=== PATIENT | male | born 1945 | race Caucasian/White ===

== ENCOUNTER → 2017-08-29 | Outpatient (CLI) | payer OTHER ==
[~2017-08-29] MED LIST: ASPIR 8181 MG PO; BENAZEPRIL HCL20 MG PO; FLOMAX0.4 MG PO; KETOCONAZOLE15 GM TOP; METFORMIN HCL500 MG PO; PROSCAR 5MG TABL5 MG PO; REVIA 50 MG TAB50 MG PO; TRAMADOL 50 MG50 MG PO; TYLENOL325 MG PO; VALSARTAN-HCTZ1 EAC2 PO; WELLBUTRIN 100100 MG PO
== END ==
LOC: MRI 07:20
DX: S83.241A Other tear of medial meniscus, current injury, right knee, initial encounter (principal); M22.41 Chondromalacia patellae, right knee; M25.461 Effusion, right knee; M17.11 Unilateral primary osteoarthritis, right knee; X58.XXXA Exposure to other specified factors, initial encounter; Y93.89 Activity, other specified; Y92.89 Other specified places as the place of occurrence of the external cause; Y99.8 Other external cause status

== ENCOUNTER 2017-09-29 05:27 | Inpatient (IN) | payer OTHER ==
[2017-09-23 13:09] LABS: HEMATOCRIT 43.7 % (42.0-52.0); HEMOGLOBIN 14.5 gm/dL (14.0-18.0); MCH 30.2 pg (26.0-34.0); MCHC 33.2 g/dL (28.0-37.0); MCV 91.1 fL (80.0-100.0); RBC 4.8 mil/uL (4.50-6.00); RDW 14.4 % (10.5-14.5); WBC 8.8 thou/uL (4.0-11.0)
[2017-09-23 13:10] LABS: URINE BILIRUBIN NEGATIVE (Negative); URINE BLOOD TRACE (Negative); URINE CLARITY CLEAR; URINE COLOR YELLOW; URINE GLUCOSE-RANDOM* NEGATIVE (Negative); URINE KETONES NEGATIVE (Negative); URINE LEUKOCYTES-REFLEX NEGATIVE (Negative); URINE NITRITE-REFLEX NEGATIVE (Negative); URINE PROTEIN (DIPSTICK) NEGATIVE (Negative); URINE SPECIFIC GRAVITY 1.025 (1.005-1.035); URINE UROBILINOGEN 0.2 E.U./dl (0.2-1.0)
[2017-09-23 13:24] LABS: PROTIME 9.6 Seconds (9.3-11.4)
[2017-09-23 13:31] LABS: ALBUMIN 3.8 g/dL (3.4-5.0); CALCIUM 9.1 mg/dL (8.5-10.1); CREATININE 0.9 mg/dL (0.7-1.3); POTASSIUM 4.3 mmol/L (3.5-5.1)
[2017-09-29] VITALS (10 sets, daily range): BP systolic 127–167; BP diastolic 79–95
[~2017-09-29] VITALS: Ht 175.3 cm; Wt 121.6 kg
--- NOTE | ~2017-09-29 | O ---
[facility] [place] [address] OPERATIVE REPORT Name: NANDINI MCCARTHY Room #: 410-P ADM IN M.R.#: [id number] Admission: 09/29/17 Attend Phys: Joseph Andrade MD Discharge: Date of : 49 Report #: [id number] THIS REPORT FOR: //name// CC: Joseph VAZQUEZ unknown DATE OF SERVICE: 09/29/2017 PREOPERATIVE DIAGNOSIS: End-stage degenerative arthritis, right knee. POSTOPERATIVE DIAGNOSIS: End-stage degenerative arthritis, right knee. PROCEDURE: Right total knee arthroplasty. SURGEON: Joseph Andrade M.D. INDICATIONS: This heavy moderately deconditioned 72-year-old gentleman complains of progressive right knee pain. Clinical exam and plain x-rays reveal evidence of moderately severe degenerative arthritis. His subjective complaints were much more severe with significant pain and swelling, unresponsive to conservative measures. We have discussed further treatment options and elected to go ahead with total knee replacement. DESCRIPTION OF PROCEDURE: The patient was taken to the operating room where he was placed under general anesthesia. Prophylactic intravenous antibiotics were administered. The right knee and leg were meticulously prepped and draped and a thigh tourniquet inflated to 300 mmHg. An anterior longitudinal skin incision was made and carried through the medial retinaculum, reflecting the patella laterally. Rather severe generalized degenerative change was noted in all 3 compartments, which certainly seems much more significant than the preoperative x-rays might have suggested. There was complete loss of cartilage on the medial femoral condyle and moderate damage on both the lateral and patellar region. The [employer] and [employer] knee system was utilized. Intramedullary guides were used on both the femur and the tibia. The femur was cut in 5 degrees of valgus and seemed to be best suited for a size 6 right femoral component. The tibial surface was resected perpendicular to the long axis of the bone and a size 5 tibial component fit nicely. The patellar surface was resected and a 35-mm patellar button fit appropriately. Appropriate anchor holes were created. The trial inserts were applied and tested. A 12-mm polyethylene insert resulted in satisfactory alignment, range of motion and stability. The components appeared to be nicely aligned and well seated with good improvement in the preoperative abnormalities. The trial components were then removed. The surfaces were thoroughly irrigated and dried. The intramedullary canal was blocked with a bone block on both the femoral and tibial sides. Methyl methacralate cement was mixed and injected into the porous surface of the tibia. The cement was injected into the porous surface of the tibia. The [employer] right size [address] [address] OPERATIVE REPORT Name: NANDINI MCCARTHY Room #: 410-P [facility] IN M.R.#: [id number] Admission: 09/29/17 Attend Phys: Joseph Andrade MD Discharge: Date of : 49 Report #: [id number] 5 Stephanie II tibial base plate was then applied, it was impacted into position in appropriate rotation and seated nicely and appeared to be secure. Excess cement was removed from around this margin. A 12-mm Legion CR polyethylene high flexion articular insert was then applied. This was snapped into place and seated nicely and appeared to be secure. A [employer] right size 6 cruciate retaining Legion porous femoral component was then impacted on to the distal femur. It also seated nicely and appeared to be secure. A 35-mm Stephanie II patellar component was cemented into place using appropriate anchor holes. This was secured with a patellar clamp until cement had hardened. Once the cement was firm, alignment, range of motion and stability were once again assessed and felt to be satisfactory. The patella seemed to track nicely and appears to be stable. A single Hemovac was then left in the wound exiting through a lateral stab incision. The fascia was closed with multiple #1 Vicryl sutures. The tourniquet was deflated after a total tourniquet time of 51 minutes. The subcutaneous tissues were closed with 0 Monocryl. The skin was closed with skin alexus. A sterile dressing was applied. The patient was awakened and returned to the recovery room in good condition. <ELECTRONICALLY SIGNED> By: Joseph Andrade MD 09/30/17 0745 [id number] Joseph Andrade MD /nt
--- NOTE | ~2017-09-29 | D ---
[facility] [place] [address] DISCHARGE SUMMARY Name: NANDINI MCCARTHY Room #: 410-P [facility] IN M.R.#: [id number] Admission: 09/29/17 Attend Phys: Joseph Andrade MD Discharge: 10/02/17 Date of : 49 Report #: [id number] THIS REPORT FOR: //name// CC: Joseph VAZQUEZ unknown DATE OF SERVICE: 10/02/2017 FINAL DIAGNOSES: End-stage degenerative arthritis, right knee; hypertension, acute urinary retention, and diabetes. OPERATIONS AND PROCEDURES: Right total knee arthroplasty. HISTORY OF PRESENT ILLNESS: This heavy 72-year-old gentleman presents with progressive right knee pain. We have elected to go ahead with total knee arthroplasty. HOSPITAL COURSE: He was admitted and taken to the operating room on 09/29. He underwent right total knee arthroplasty, which he tolerated well. Postoperatively, his course was largely unremarkable. He was able to resume his usual preoperative diabetic diet and his usual medications. He was advanced from IV analgesics to oral analgesics. He was started on an anticoagulation regimen with Xarelto. He made slow progress with physical therapy. He did have some problems with urinary retention and required straight catheterization and brief indwelling catheter. Symptoms seem to be improved with activity and use of Flomax. He has made good progress with therapy and is able to ambulate independently and making good progress with strength and range of motion. He is now anxious for discharge home on 10/02. We have made plans preoperatively to begin outpatient therapy beginning early next week. Today, he is somewhat uncertain whether he might need to have some assistance over the weekend with a few visits with home therapy. I am going to let him work with therapy a couple of times today before discharge and will make that decision about either home visiting therapy or simply proceeding with outpatient therapy next week as previously planned. We have discussed ongoing anticoagulation regimen and I have suggested Xarelto. He is uncomfortable with that medication. We discussed cost and discussed medical risks and benefits in general. We have reviewed the options of warfarin, Lovenox, Xarelto, or aspirin. He understands the potential risks and benefits well as does his . He prefers to use a low dose aspirin and we have discussed this at some length. He will continue on his other routine medications, which include Flomax 0.4 mg daily, Wellbutrin 100 mg b.i.d., ReVia 50 mg daily, valsartan/hydrochlorothiazide 160/25 one daily, Lotensin 20 mg daily, metformin 500 mg b.i.d., Proscar 5 mg daily, tramadol 50 mg q.6 hours p.r.n. for mild pain, hydrocodone 7.5 mg q.4 hours p.r.n. moderate or more severe pain, aspirin 325 mg b.i.d. for 2 weeks and then 81 mg daily for the next 2 months. I have asked him to call me should there be any problems or questions. We will otherwise plan to see him back in the office next week for [address] [address] DISCHARGE SUMMARY Name: NANDINI MCCARTHY Room #: 410-P DIS IN M.R.#: [id number] Admission: 09/29/17 Attend Phys: Joseph Andrade MD Discharge: 10/02/17 Date of : 49 Report #: [id number] wound check, if there are any problems and the following week for suture removal. <ELECTRONICALLY SIGNED> By: Joseph Andrade MD 10/13/17 0750 [id number] Joseph Andrade MD /nt
[2017-09-30 04:00] VITALS: BP 129/77
[2017-09-30 06:48] LABS: HEMATOCRIT 36.8 % (42.0-52.0); HEMOGLOBIN 12.3 gm/dL (14.0-18.0); MCH 30.5 pg (26.0-34.0); MCHC 33.5 g/dL (28.0-37.0); RBC 4.05 mil/uL (4.50-6.00); RDW 14.1 % (10.5-14.5); WBC 10.6 thou/uL (4.0-11.0)
[2017-09-30 08:00] VITALS: BP 158/88
[2017-09-30 17:04] VITALS: BP 148/90
[2017-09-30 20:00] VITALS: BP 175/95
[2017-09-30 20:23] VITALS: BP 187/86
[2017-10-01] VITALS (7 sets, daily range): BP systolic 135–185; BP diastolic 65–102
[2017-10-01 05:42] LABS: HEMATOCRIT 35.7 % (42.0-52.0); HEMOGLOBIN 11.6 gm/dL (14.0-18.0); MCH 29.9 pg (26.0-34.0); MCHC 32.5 g/dL (28.0-37.0); RBC 3.88 mil/uL (4.50-6.00); WBC 11.6 thou/uL (4.0-11.0)
[2017-10-02 04:00] VITALS: BP 160/91
[2017-10-02 05:55] LABS: HEMATOCRIT 33.5 % (42.0-52.0); HEMOGLOBIN 11.1 gm/dL (14.0-18.0); MCH 30.5 pg (26.0-34.0); MCHC 33.3 g/dL (28.0-37.0); MCV 91.7 fL (80.0-100.0); RBC 3.65 mil/uL (4.50-6.00); WBC 11.2 thou/uL (4.0-11.0)
[2017-10-02 07:22] VITALS: BP 171/83
[2017-10-02] MEDS ORDERED: FLOMAX0.4 MG PO (08:09)
[2017-10-02 14:54] VITALS: BP 171/83
== END 2017-10-02 16:13 | disposition home or self-care (01) | DRG 470 ==
LOC: TBA 05:27 → 4N 05:27 → PRE 05:29 → 4N 16:37 → ENTRNSPT 10-02 16:03 → 4N 10-02 16:13
PROVIDERS: Orthopaedic Surgery
PROC: 0SRC0J9 Replacement of Right Knee Joint with Synthetic Substitute, Cemented, Open Approach (ICD-10-PCS; principal; 2017-09-29)
DX: M17.11 Unilateral primary osteoarthritis, right knee (principal); E11.9 Type 2 diabetes mellitus without complications; I10 Essential (primary) hypertension; R33.9 Retention of urine, unspecified; N40.0 Benign prostatic hyperplasia without lower urinary tract symptoms
CPT/HCPCS: 10790; 50010; 50101; 50415; 50954; 51130; 51225; 51412; 51771; 53364; 56525; 62110; 62900